=== PATIENT | female | born 1975 | race Caucasian/White ===

== ENCOUNTER → 2016-08-03 | Outpatient (CLI) | payer OTHER ==
[~2016-08-03] MED LIST: AMIT50TA3 PO; ATOR-14 PO; BUPR100T13 PO; CITA20TA9 PO; CYCL10TA6 PO; FENO145T26 PO; GLC/500 PO; MELO7.5T7 PO; MIRT30TA3 PO; NRN/300 PO; QUET1TAB10 PO; QUET5TAB PO; SRQ/100 PO; combivent INH; humulin 70/30 SQ; lantus insulin SQ; proair INH
[2016-08-03 13:56] LABS: AST/SGOT 38 U/L (15-37); BLOOD UREA NITROGEN 9 mg/dl (7-18); BUN/CREATININE RATIO 17.5 (10-20); CALCIUM 9.1 mg/dl (8.5-10.1); CARBON DIOXIDE 29 mmol/L (21-32); CHLORIDE 103 mmol/L (98-107); CREATININE 0.53 mg/dl (0.60-1.20); GLUCOSE 203 mg/dl (70-99); POTASSIUM 4.4 mmol/L (3.5-5.1); SODIUM 142 mmol/L (136-145)
[2016-08-03 14:02] LABS: RATIO 17.1 mcg/mg (0-30.0)
[2016-08-03 14:05] LABS: ALT/SGPT 38 U/L (12-78); CHOLESTEROL 179 mg/dl (0-200); CHOLESTEROL/HDL RATIO 4.7; HDL CHOLESTEROL 38 mg/dl; TRIGLYCERIDES 401 mg/dl (0-150)
[2016-08-03 14:07] LABS: ESTIMATED AVERAGE GLUCOSE 258 mg/dl; HA1C FLAG Normal (Normal)
== END | disposition home or self-care (01) ==
LOC: C.LABMFLN 09:10
PROVIDERS: ATTEND Family Medicine
DX: E11.9 Type 2 diabetes mellitus without complications (principal); I10 Essential (primary) hypertension; E78.00 Pure hypercholesterolemia, unspecified; E78.5 Hyperlipidemia, unspecified

== ENCOUNTER → 2016-11-02 | Outpatient (CLI) | payer OTHER | END | disposition home or self-care (01) | LOC: C.LABMFLN 13:54 | PROVIDERS: ATTEND Family Medicine | DX: L02.415 Cutaneous abscess of right lower limb (principal) ==

== ENCOUNTER → 2017-01-20 | Outpatient (CLI) | payer OTHER ==
[2017-01-20 19:03] LABS: ALKALINE PHOSPHATASE 104 U/L (45-117); ALT/SGPT 62 U/L (12-78); AST/SGOT 40 U/L (15-37); BLOOD UREA NITROGEN 10 mg/dl (7-18); BUN/CREATININE RATIO 12.5 (10-20); CALCIUM 9.5 mg/dl (8.5-10.1); CARBON DIOXIDE 29 mmol/L (21-32); CHLORIDE 96 mmol/L (98-107); CREATININE 0.78 mg/dl (0.60-1.20); GLUCOSE 368 mg/dl (70-99); POTASSIUM 4.1 mmol/L (3.5-5.1); SODIUM 133 mmol/L (136-145)
[2017-01-20 19:43] LABS: BETA-HYDROXYBUTYRATE 1.79 mg/dL (0.2-2.81)
[2017-01-21 06:34] LABS: ESTIMATED AVERAGE GLUCOSE 318 mg/dl; HA1C FLAG Normal (Normal)
== END | disposition home or self-care (01) ==
LOC: C.LABMFLN 15:15
PROVIDERS: ATTEND Family Medicine
DX: E11.9 Type 2 diabetes mellitus without complications (principal); I10 Essential (primary) hypertension; E78.5 Hyperlipidemia, unspecified; R60.9 Edema, unspecified

== ENCOUNTER → 2017-06-16 | Outpatient (CLI) | payer OTHER ==
[2017-06-22 11:48] LABS: O&P GIARDIA AG NOT DETECTED (NOT DETECTED); O&P SOURCE OTHER-STOOL
== END | disposition home or self-care (01) ==
LOC: C.LABMFLN 19:06
PROVIDERS: ATTEND Family Medicine
DX: E11.9 Type 2 diabetes mellitus without complications (principal); R19.7 Diarrhea, unspecified

== ENCOUNTER → 2017-09-08 | Outpatient (CLI) | payer OTHER ==
[2017-09-08 18:18] LABS: ALBUMIN 3.5 gm/dl (3.4-5.0); ALT/SGPT 53 U/L (12-78); AST/SGOT 31 U/L (15-37); BLOOD UREA NITROGEN 8 mg/dl (7-18); CALCIUM 9.3 mg/dl (8.5-10.1); CARBON DIOXIDE 29 mmol/L (21-32); CREATININE 0.59 mg/dl (0.60-1.20); GLUCOSE 347 mg/dl (70-99); POTASSIUM 3.6 mmol/L (3.5-5.1); SODIUM 132 mmol/L (136-145)
[2017-09-08 18:21] LABS: ALKALINE PHOSPHATASE 86 U/L (45-117)
[2017-09-09 07:02] LABS: HEMOGLOBIN A1C 12.3 % (4.5-5.6)
== END | disposition home or self-care (01) ==
LOC: C.LABMFLN 15:55
PROVIDERS: ATTEND Family Medicine
DX: E11.9 Type 2 diabetes mellitus without complications (principal); R60.0 Localized edema

== ENCOUNTER → 2017-10-11 | Outpatient (CLI) | payer OTHER ==
[2017-10-11 13:16] LABS: BLOOD UREA NITROGEN 8 mg/dl (7-18); CALCIUM 9.2 mg/dl (8.5-10.1); CARBON DIOXIDE 35 mmol/L (21-32); CREATININE 0.62 mg/dl (0.60-1.20); GLUCOSE 252 mg/dl (70-99); POTASSIUM 4.1 mmol/L (3.5-5.1); SODIUM 134 mmol/L (136-145)
== END | disposition home or self-care (01) ==
LOC: C.LABMFLN 09:10
PROVIDERS: ATTEND Family Medicine
DX: R60.0 Localized edema (principal)